=== PATIENT | male | born 1940 | race Caucasian/White ===

== ENCOUNTER → 2022-09-30 10:20 | Outpatient (CLI) | payer MEDICARE, OTHER, SELFPAY ==
--- NOTE | 2022-09-30 | DI.RAD.S_ITS ---
PROCEDURE: XR LUMBAR SPINE 2-3V INDICATIONS: ACUTE LEFT-SIDED LOW BACK PAIN W/ ANGEL SCIATICA TECHNIQUE: 3 views of the lumbar spine were acquired. COMPARISON: [facility], , L-SPINE 2-3 VIEWS, 04/22/2012, 11:49. FINDINGS: Bones: 5 [id number] vertebrae are present. Asymmetric right-sided L4-5 disc height loss and endplate spurring. Moderate to severe L5-S1 disc height loss, trace retrolisthesis, and prominent facet arthropathy. Mild disc height loss L2-3 and L3-4. There is normal bony alignment. No vertebral body compression fractures. No suspicious bony lesions. Soft tissues: Overlying bowel gas pattern is normal. No suspicious soft tissue calcifications. IMPRESSION: 1. Chronic appearing degeneration, most extensive L5-S1, stable in severity compared to remote prior study. Dictated by: Blanca Knight M.D. on 09/30/2022 at 14:17 Approved by: Blanca Knight M.D. on 09/30/2022 at 14:19
== END ==
PROVIDERS: PCP Student in an Organized Health Care Education/Training Program; Referring Provider Student in an Organized Health Care Education/Training Program; Visit Provider Student in an Organized Health Care Education/Training Program
DX: M51.17 Intervertebral disc disorders with radiculopathy, lumbosacral region (principal)
CPT/HCPCS: 72100